=== PATIENT | male | born 1980 | race Caucasian/White ===

== ENCOUNTER 2016-11-12 07:10 | Day surgery (SDC) | payer BC ==
--- NOTE | 2016-10-08 15:52 | HP ---
HISTORY AND PHYSICAL EXAM WILL BE OVER 30 DAYS AT TIME OF ADMISSION HISTORY AND PHYSICAL: DATE OF SURGERY: 11/12/16 DATE OF OFFICE VISIT: 10/07/16 SURGEON: Janet Minor MD. (DICTATED BY DORI ROBISON) PROCEDURE: Left knee arthroscopy with partial lateral meniscectomy, possible chondroplasty, possible synovectomy. CHIEF COMPLAINT: Left knee pain. HISTORY OF PRESENT ILLNESS: Marcial is a 35-year-old gentleman with complaints of left knee pain. An MRI showed a lateral meniscus tear. He has failed a conservative management and has elected to proceed with a left knee arthroscopy with partial lateral meniscectomy, which is scheduled to be in the upcoming weeks pending cardiac clearance. PAST MEDICAL HISTORY: Left aortic stenosis. PAST SURGICAL HISTORY: Appendectomy, left carpal tunnel release. MEDIATIONS: Naproxen. ALLERGIES: None. FAMILY HISTORY: None. SOCIAL HISTORY: He is a 35-year-old gentleman. He is . He does not smoke or use drugs. He has an occasional alcohol. REVIEW OF SYSTEMS: A complete 14-point review of systems was reviewed with the patient and was negative and noncontributory. PHYSICAL EXAMINATION GENERAL: He is well developed and well nourished, he is in no acute distress. VITAL SIGNS: He stands 6 feet 2 inches tall, he is 215 pounds, his blood pressure 116/82. HEENT: Normocephalic, atraumatic. NECK: Supple. No palpable lymph nodes. PULMONARY: Lungs are clear to auscultation bilaterally. No wheezes, rhonchi, or rales. CARDIO: Regular rate and rhythm. ABDOMEN: Soft, nontender, and nondistended. MUSCULOSKELETAL: Left lower extremity; the skin is intact. There is some tenderness over the lateral joint line. There is full range of motion of the left knee with intact sensation, pin prick, and light touch. Lower extremity muscle group strengths are intact and 5/5. He is 2+ dorsalis pedis pulses. NEUROLOGIC: He is alert and oriented x3. Cranial nerves II through XII are intact. ASSESSMENT AND PLAN: Marcial is a 35-year-old gentleman with complaints of left knee pain. An MRI showed a lateral meniscus tear, he has elected to proceed with surgery, which is scheduled for the upcoming weeks with Dr. Minor pending cardiac clearance. He will follow with Dr. Minor in 10 to 14 days after the surgery. DORI ROBISON [id number]/CPS #: [id number] MTDD
--- NOTE | 2016-11-06 22:35 | HP ---
PREOPERATIVE HISTORY AND PHYSICAL: DATE OF ADMISSION: 11/12/16 PROVIDER: Dr. Janet Minor. CHIEF COMPLAINT: Left knee pain. HISTORY OF PRESENT ILLNESS: Marcial is a 35-year-old male, who has been followed by Dr. Minor f or ongoing left knee pain. He did undergo an MRI that showed a lateral meniscus tear and has failed conservative management. He has elected to proceed with a left knee arthroscopy with partial later al meniscectomy. PAST MEDICAL HISTORY: Left aortic stenosis. PAST SURGICAL HISTORY: Appendectomy and left carpal tunnel release. CURRENT MEDICATIONS: None. ALLERGIES: No known drug allergies. FAMILY HISTORY: Noncontributory. SOCIAL HISTORY: The patient lives with his . 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 He denies tobacco use. He denies illicit drug use. He drinks alcohol very occasionally. REVIEW OF SYSTEMS: Constitutional: Negative for recent hospitalizations, fevers, chills, night swe ats, or unexplained weight loss. Eyes: Negative for blurred or double vision. ENT: Negative for hearing changes, sore throat, or runny nose. Cardiovascular: Negative for chest or arm pain with ex ertion or history of heart attack. Positive for heart murmur due to his stenosis. Respiratory: Ne gative for chronic cough, shortness of breath with exertion, asthma, or COPD. Gastrointestinal: Neg ative for heartburn, nausea, vomiting, diarrhea, constipation, or GERD. Genitourinary: Negative fo r nighttime urination, frequency of urination, urinary tract infections, or kidney problems. Muscul oskeletal: Negative for chronic back pain. Negative for recent fracture. Skin: Negative for rashe s, lesions, lumps, or sores. Neurologic: Negative for seizure, stroke, epilepsy, depression, or an xiety. Endocrine: Negative for diabetes or thyroid problems. Hematology: Negative for easy bleed ing, bruising, or anemia. PHYSICAL EXAMINATION GENERAL: He is a well-developed, well-nourished male in no acute distress at rest. He is alert and oriented x3 with appropriate mood and affect. VITAL SIGNS: The patient is 6 feet tall, 234 pounds, blood pressure 140/89, pulse of 92, temperatur e 98.1. HEENT: Normocephalic, atraumatic. Hearing and vision are grossly intact. NECK: Trachea is midline. RESPIRATORY: Lungs clear to auscultation bilaterally. No wheezes, rales, or rhonchi. CARDIOVASCULAR: Regular rate and rhythm. No murmurs, rubs, or gallops. Normal S1, S2. ABDOMEN: Soft, nondistended, nontender. Normal bowel sounds. EXTREMITIES: Exam of the left lower extremity: Skin is intact without abrasions or open wounds. H helen has mild joint effusion. He is tender to palpation along the posterior medial and posterior later al joint lines. He has positive Apley's and positive Wilber's. He has 10 to 120 degrees of flexi on at the knee. Sensation to light touch is intact distally. He has stable varus and valgus stress test. He has a 2+ dorsalis pedis pulse. DIAGNOSTIC STUDIES: Imaging: MRI of the left knee was reviewed and shows a radial tear of the lat eral meniscus and some cartilage loss along the medial femoral condyle and patellofemoral joint. IMPRESSION: Left knee medial meniscus tear. PLAN: The patient is to undergo left knee arthroscopy with partial meniscectomy, possible chondropl asty, possible synovectomy by Dr. Minor on 11/12/16. The risks, benefits, and postoperative course were discussed with the patient at length and he would like to proceed. A prescription for Percocet was sent to his pharmacy for postoperative pain. All of his questions were answered to his full sa tisfaction. He is understanding to call if he develops problems or concerns. DORI BARGER [id number]/[facility] #: [id number]
[~2016-11-12 07:10] MED LIST: Buffered Lidocaine 0.9% SYRIN* 5 ML/SYR SYRINGE ONE; Bupivacaine 0.5% SDV PF* 30 ML VIAL ONE; Dexamethasone IV* 4 MG/ML 1 ML (4 MG) IV SLOW PU ONE; Dexamethasone IV* 4 MG/ML 1 ML (4 MG) ONE; EPINEPHrine AMP 1 MG/ML ONE; Famotidine IV* 10 MG/ML 2 ML (20 mg) IV ONE; Famotidine IV* 10 MG/ML 2 ML (20 mg) ONE; ceFAZolin 2 GM PREMIX(*) 2 GM/50 ML BAG IVPB ONE; methylPREDNISolone ACETATE 80* 80 MG/ML 1 ML VIAL ONE
[2016-11-12] MEDS ORDERED: Ondansetron INJ* 2 MG/ML VIAL IV PRN (07:33)
[2016-11-12] MEDS ORDERED: oxyCODONE/Acetamin 5/325 MG* TAB PO PRN (07:33)
[2016-11-12] MEDS ORDERED: fentaNYL* 50 MCG/ML 2 ML VIAL (100 MCG VIAL) IV PRN (07:33)
[2016-11-12] MEDS ORDERED: DiMENhydriNATE IV* 50 MG/ML VIAL IV PUSH PRN (07:33)
[2016-11-12] MEDS ORDERED: fentaNYL* 50 MCG/ML 5 ML VIAL (250 MCG VIAL) ONE (07:40)
[2016-11-12] MEDS ORDERED: Midazolam* 1 MG/ML 5 ML VIAL (5 MG) ONE (07:40)
[2016-11-12] MEDS ORDERED: Ondansetron INJ* 2 MG/ML VIAL ONE (07:41)
[2016-11-12] MEDS ORDERED: Lidocaine 2% PF * 5 ML VIAL ONE (07:41)
[2016-11-12] MEDS ORDERED: Propofol* 10 MG/ML 20 ML BTL IV PUSH ONE (07:41)
[2016-11-12] MEDS ORDERED: Ketorolac INJ* 30 MG/ML 1 ML VIAL ONE (07:41)
[2016-11-12] MEDS ORDERED: Glycopyrrolate IV* 0.2 MG/ML 1 ML VIAL ONE (08:12)
[2016-11-12] MEDS ORDERED: fentaNYL* 50 MCG/ML 2 ML VIAL (100 MCG VIAL) ONE (08:50)
[2016-11-12 09:32] VITALS: BP 144/96
[2016-11-12] MEDS ORDERED: oxyCODONE/Acetamin 5/325 MG* TAB ONE (09:33)
--- NOTE | 2016-11-13 04:35 | OP ---
DATE OF OPERATION: 11/12/16 [facility] DATE OF : 80 ATTENDING SURGEON: Janet Minor MD [employer]: DORI Burnham. Ms. Ochoa did help throughout the procedure with preparation of the leg, manipulation of instruments in the leg, and wound closure. ANESTHESIOLOGIST: Dr. Gates. ANESTHESIA: General. PRE-OP DIAGNOSIS: Left knee osteoarthritis and lateral meniscal tear. POST-OP DIAGNOSIS: Left knee severe degenerative osteoarthritis involving the medial and patellofemoral compartment, lateral meniscal tear. OPERATIVE PROCEDURES: Left knee arthroscopy with partial lateral meniscectomy, medial chondroplasty, patellofemoral chondroplasty. ESTIMATED BLOOD LOSS: Less than 50 cc. COMPLICATIONS: None. SPECIMEN: None. BRIEF HISTORY/INDICATION: Mr. Shoemaker is a 35-year-old gentleman with months of left knee pain. He had a twisting injury while bowling and since that time, has had clicking and catching in the knee. He failed conservative treatment and an MRI confirmed a lateral meniscal tear as well as his known arthritis. He elected to undergo left knee arthroscopy due to continued pain and decreased quality of life. Informed consent was obtained from the patient. He understood the risks of surgery included but were not limited to bleeding, infection, damage to nearby structures, continued pain, need for further surgery, stroke, heart attack, blood clot, and . He wished to proceed. INTRAOPERATIVE FINDINGS: Intraoperatively, the patient was noted to have an unfortunate amount of severe arthritis involving the medial and patellofemoral compartments. These were grade III and IV Outerbridge cartilage changes. There was exposed subchondral bone along the majority of the medial femoral condyle with cartilage flapping. There was exposed subchondral bone along the medial and lateral patellar facets as well as the trochlear groove. There was an anterolateral meniscal tear in the white-red zone, which was radial. DESCRIPTION OF PROCEDURE: Mr. Shoemaker was identified in the preanesthesia unit. His left lower extremity was marked as the correct operative side. Informed consent was signed and placed in the chart. The patient was taken to the operating room and placed under general anesthesia. His left lower extremity was prepped and draped in the usual sterile fashion. Preop time-out was made to correctly identify the patient's side and site. Appropriate perioperative antibiotics were given within 1 hour of incision. A 0.5 cm anterolateral portal incision was made with the 10 blade and carried down through the capsule. Trocar was introduced. As soon as the light and water sources were turned on, there was immediate visualization of the supra- patellar pouch. A tour of the knee joint was performed. Patellofemoral compartment showed some cartilage flapping with exposed subchondral bone along the medial and lateral patellar facets as well as in the trochlear groove. Medial gutter showed no loose body. There was some synovitis. Medial compartment showed exposed subchondral bone with cartilage flapping along the majority of the medial femoral condylar weightbearing surface. There was no obvious medial meniscal tear. ACL appeared to be intact. The knee was placed in the [id number] position. There was an anterolateral radial tear of the lateral meniscus. No significant cartilage changes in this compartment. Lateral gutter showed no loose body or plica. Under direct visualization, a medial portal incision was made with a 15 blade. Probe was introduced and a second tour of the knee joint was performed. There were no additional findings. Shaver and radiofrequency ablation wand were used to carefully remove any anterior synovitis or inflamed tissue. Next, the radiofrequency ablation wand used to perform medial and patellofemoral chondroplasty. Cartilage flaps were carefully and conservatively smoothed in order to prevent continued tearing. Unfortunately, it was noted that these were grade III and IV Outerbridge cartilage changes in both the medial and patellofemoral compartments. Next, the knee was placed in a figure- of-four position. Straight biter and shaver were used to perform partial lateral meniscectomy in the white-white and white- red zone until a smooth border of the anterolateral meniscus was obtained. There were multiple small cartilage fragments in the joint fluid. Shaver was placed in the suprapatellar pouch and the knee was copiously irrigated with several liters of sterile saline with epi. All instruments were carefully removed. The incisions were closed using interrupted 3-0 nylon suture. Intraarticular injection of 80 mg of Depo-Medrol and 6 cc of 0.25% Marcaine was placed in the knee joint. The patient's incisions were covered in Xeroform, 4x4' s, and Webril. Zak wrap and cold pack were placed over this. The patient's anesthesia was reversed without difficulty. He was taken to the PACU in stable condition. Intended weightbearing will be weightbearing as tolerated. Intended DVT prophylaxis will be ECASA. [id number]/[facility] #: [id number] [facility]
== END 2016-11-12 09:58 | disposition home or self-care (01) ==
LOC: OR 07:10
PROVIDERS: ATTEND Orthopaedic Surgery Adult Reconstructive Orthopaedic Surgery
DX: S83.282A Other tear of lateral meniscus, current injury, left knee, initial encounter (principal); M17.12 Unilateral primary osteoarthritis, left knee; M65.862 Other synovitis and tenosynovitis, left lower leg; X50.9XXA Other and unspecified overexertion or strenuous movements or postures, initial encounter; Y92.9 Unspecified place or not applicable; I35.0 Nonrheumatic aortic (valve) stenosis
CPT/HCPCS: 88304; A9270-GY; J0171; J0690; J1040; J1100; J1885; J2250; J2405; J2704; J3010

== ENCOUNTER 2016-11-20 16:27 | Emergency (ER) | payer BC ==
--- NOTE | 2016-11-20 18:19 | RAD ---
HISTORY: Left lower extremity swelling and pain, status post arthroscopic surgery COMPARISONS: None relevant TECHNIQUE: Multiple transverse and longitudinal ultrasound images were obtained of the left lower extremity from the level of the common femoral vein inferiorly through to the infrapopliteal veins using grayscale, color Doppler, and spectral Doppler imaging with and without compression and with augmentation. Comparison images were obtained of the contralateral common femoral vein. FINDINGS: VEINS: The venous system of the left lower extremity is compressible throughout its course, with normal flow on color Doppler imaging and normal response to augmentation on spectral Doppler imaging. SOFT TISSUES: Unremarkable. OTHER FINDINGS: There is a complicated suprapatellar joint effusion measuring 7.8 x 2.2 x 8 centimeters in size. There is a complicated fluid collection in the popliteal fossa measuring 4.4 x 2.6 x 1.8 cm. IMPRESSION: 1. NO LEFT LOWER EXTREMITY DEEP VEIN THROMBOSIS 2. COMPLICATED SUPRAPATELLAR JOINT EFFUSION AND LEFT POPLITEAL FOSSA CYST
[2016-11-20 18:40] VITALS: BP 138/81
--- NOTE | 2016-11-20 18:51 | ED ---
Lower Extremity - HPI Summary HPI Summary: Patient is 8 days s/p partial lateral meniscectomy after a lateral meniscal tear peformed by Dr. Minor. He notes to worsening pain and joint effusion over the area x 1 week. He states he called Dr. Minor's office on Wednesday but never received a call back. Today, he called again with a complaint of worsening tenderness to the popliteal area and was advised to come to ED for evaluation. He has been weight bearing with pain, moderate amount of effusion and clean incision wounds over the anterior knee without erythema, warmth or drainage. Denies SOB, fever, sweats or chills. He has limited ROM d/t pain and swelling and is requesting pain management. - History of Current Complaint Chief Complaint: EDExtremityLower Stated Complaint: LT KNEE PAIN/SURGERY LAST Time Seen by Provider: 11/20/16 17:56 Hx Obtained From: Patient Onset of Pain: Days Onset/Duration: Days Severity Initially: Moderate Severity Currently: Moderate Pain Intensity: 8 Pain Scale Used: 0-10 Numeric Timing: Constant Location: Is Discrete @ - left posterior and lateral knee Character Of Pain: Aching, Stiffness Associated Signs And Symptoms: Positive: Swelling Aggravating Factor(s): Standing, Ambulation Alleviating Factor(s): Rest Able to Bear Weight: No - Risk Factors Gout Risk Factors: Male DVT Risk Factors: Recent Surgery, Recent Trauma Septic Arthritis Risk Factor: Negative - Allergies/Home Medications Allergies/Adverse Reactions: Allergies Allergy/AdvReac Type Severity Reaction Status Date / Time No Known Allergies Allergy Verified 11/12/16 07:25 PMH/Surg Hx/FS Hx/Imm Hx Previously Healthy: Yes Endocrine/Hematology History: Denies: Hx Diabetes, Hx Thyroid Disease Cardiovascular History: Reports: Other Cardiovascular Problems/Disorders - LEFT AORTIC VALVE STENOSIS SINCE Denies: Hx Hypertension, Hx Pacemaker/ICD Respiratory History: Denies: Hx Asthma, Hx Chronic Obstructive Pulmonary Disease (COPD) GI History: Denies: Hx Ulcer History: Denies: Hx Dialysis, Hx Renal Disease Musculoskeletal History: Reports: Hx Arthritis - GENERALIZED, Hx Back Problems, Other Musculoskeletal History - had bone fusion and hx plantar fascitis left foot, left knee bursitis Sensory History: Denies: Hx Contacts or Glasses, Hx Hearing Aid Opthamlomology History: Denies: Hx Contacts or Glasses Neurological History: Denies: Other Neuro Impairments/Disorders Psychiatric History: Denies: Hx Panic Disorder - Cancer History Hx Chemotherapy: No - Surgical History Surgery Procedure, Year, and Place: [id number] Left carpal tunnel release 2009 Hx Anesthesia Reactions: No Infectious Disease History: No Infectious Disease History: Denies: Hx Clostridium Difficile, Hx Hepatitis, Hx Human Immunodeficiency Virus (HIV), Hx of Known/Suspected MRSA, Hx Shingles, Hx Tuberculosis, Hx Known/ Suspected VRE, Hx Known/Suspected VRSA, History Other Infectious Disease, Traveled Outside the [place] in Last 30 Days - Social History Occupation: Employed Full-time Lives: With Family Alcohol Use: None Hx Substance Use: No Substance Use Type: Reports: None Substance Use Comment - Amount & Last Used: oxycodone Hx Tobacco Use: No Smoking Status (MU): Never Smoked Tobacco Do You Chew or Dip Tobacco: No Have You Smoked in the Last Year: No Review of Systems Constitutional: Negative Eyes: Negative Cardiovascular: Negative Genitourinary: Negative Positive: Arthralgia - left knee joint effusion with pain Skin: Negative Neurological: Negative Psychological: Normal All Other Systems Reviewed And Are Negative: Yes Physical Exam Triage Information Reviewed: Yes Vital Signs On Initial Exam: Initial Vitals Temp Pulse Resp BP Pulse Ox 97.9 F 105 20 158/95 98 11/20/16 16:32 11/20/16 16:32 11/20/16 16:32 11/20/16 16:32 11/20/16 16:32 Vital Signs Reviewed: Yes Appearance: Positive: Well-Appearing, Well-Nourished Skin: Positive: Warm, Skin Color Reflects Adequate Perfusion Eyes: Positive: Normal, EOMI, DENISHA Neck: Positive: No Lymphadenopathy Respiratory/Lung Sounds: Positive: Clear to Auscultation, Breath Sounds Present Cardiovascular: Positive: RRR Musculoskeletal: Positive: Pain @ - left lateral and posterior knee pain and swelling, Paola Sign Left Neurological: Positive: Sensory/Motor Intact, Speech Normal Psychiatric: Positive: Normal AVPU Assessment: Alert Diagnostics - Vital Signs Vital Signs Temp Pulse Resp BP Pulse Ox 11/20/16 18:39 99.8 F 93 18 138/81 99 11/20/16 16:32 97.9 F 105 20 158/95 98 - Laboratory Lab Statement: Any lab studies that have been ordered have been reviewed, and results considered in the medical decision making process. Lower Extremity Course/Dx - Course Course Of Treatment: He has tenderness over the posterior lateral joint lines. S/p meniscal surgery by Dr. Minor. Incision and suture lines are CDI without signs of infection. Per patient, swelling is not better or worse than 1 day s/ p surgery. He notes to worsening pain not well controlled with ibuprofen (has not been taking consistently). Called Dr. Minor's office today with c/o pain in the posterior knee in the popliteal fossa. They advised he come here for a r /o DVT. IMPRESSION: 1. NO LEFT LOWER EXTREMITY DEEP VEIN THROMBOSIS. 2. COMPLICATED SUPRAPATELLAR JOINT EFFUSION AND LEFT POPLITEAL FOSSA CYST. Patient advised to follow up with Dr. Minor's office on Wednesday. Effusion is moderate and unchanging. Discussed treatment plans including joint aspiration. However, risks for joint aspiration after surgery is not advised, and is to f/ u next week. Pain management given. Patient made aware of plan and is OK with discharge. Patient will follow up with PCP and return if symptoms become worse. Return precautions given, medications and side effects reviewed. - Diagnoses Differential Diagnosis/HQI/PQRI: Positive: Fracture (Closed), Fracture (Open), Sprain, Strain, Tendonitis Provider Diagnoses: Joint effusion of knee Discharge - Discharge Plan Condition: Stable Disposition: HOME Prescriptions: HYDROcodone/ACETAMIN 5-325 MG* [[place] 5-325 TAB*] 1 tab PO Q4H PRN #18 tab MDD 6 PRN Reason: Pain Patient Education Materials: Swollen Knee Joint (ED) Referrals: Gonsalo Gil MD [Primary Care Provider] - Additional Instructions: Ibuprofen 600mg three times daily with meals for inflammation. Follow up with orthopedic physician on Wednesday. If numbness, tingling, decreased sensation, increased pain, temperature changes or pallor noted in toes, come back to ER immediately. Protect the area. For your comfort level, do not bear weight, pull or push until you can injury is somewhat healed. Rest the involved area, but not too long. You may need to be off your injury for some time to allow for healing, however excessive immobilization of joints can lead to stiffness and delay healing time. Early mobilization is encouraged if it is pain-free. Ice. Not directly on the skin. Cover with a towel. Apply ice no more than 30 minutes at a time Compression: You may use and keep an shmuel wrap bandage over the injury to decrease swelling. Again, this should be limited and be taken off periodically to encourage early range of motion and mobilization. Elevate: Try to elevate the injured area above the heart whenever possible.
== END 2016-11-20 18:53 | disposition home or self-care (01) ==
LOC: ED 16:27
DX: M25.462 Effusion, left knee (principal); M25.562 Pain in left knee; M71.22 Synovial cyst of popliteal space [Baker], left knee; Z98.890 Other specified postprocedural states; I35.0 Nonrheumatic aortic (valve) stenosis
CPT/HCPCS: 99282

== ENCOUNTER 2018-01-15 21:42 | Emergency (ER) | payer BC ==
[2018-01-15 22:13] LABS: ABS Basophils 0.1 10^3/ul (0-0.2); ABS Eosinophils 0.1 10^3/ul (0-0.6); ABS Lymphocytes 2.8 10^3/ul (1.0-4.8); ABS Monocytes 0.6 10^3/ul (0-0.8); ABS Neutrophils 3.3 10^3/ul (1.5-7.7); ABS Nucleated RBC 0 10^3/ul; Hematocrit 42 % (42-52); Lymphocyte % 40.6 % (25-47); Mean Corpuscular HGB Conc 36 g/dl (31-36); Mean Corpuscular Hemoglobin 31 pg (27-31); Mean Corpuscular Volume 88 fL (80-94); Mean Platelet Volume 8.4 um3 (7.4-10.4); Nucleated Red Blood Cells % 0.2; Platelet Count 247 10^3/ul (150-450); Red Blood Count 4.79 10^6/ul (4.00-5.40); Red Cell Distribution Width 13 % (10.5-15); White Blood Count 6.9 10^3/ul (3.5-10.8)
[2018-01-15] MEDS ORDERED: Morphine VIAL* 10 MG/ML 1 ML VIAL IV ONE (22:16)
[2018-01-15] MEDS ORDERED: Ondansetron INJ* 2 MG/ML VIAL IV PRN (22:16)
[2018-01-15] MEDS ORDERED: NS 0.9% 1000 ML* 1,000 ML IV ONE (22:16)
[2018-01-15 22:30] LABS: EGFR Non-African American 84.1 (>60)
[2018-01-15] MEDS ORDERED: Ondansetron INJ* 2 MG/ML VIAL ONE (22:34)
--- NOTE | 2018-01-15 22:53 | ED ---
Abdominal Pain/Male - HPI Summary HPI Summary: Patient complains of right lower quadrant abdominal pain starting yesterday. Pain described as achy, sharp, constant with spikes, worse with movement, progressive since yesterday. Also complains of bloating 2 days, minimal bowel movement 2 days. States history of untreated hernia for 2-3 years, but no protrusion. Eating and drinking normally. Denies fever, cough, sore throat, CP , SOB, N/V/D, change in urine, testicular or genital pain. Medical history is none. Surgical history is appendectomy. - History of Current Complaint Chief Complaint: EDAbdPain Stated Complaint: ABD PAIN Time Seen by Provider: 01/15/18 21:44 Hx Obtained From: Patient Onset/Duration: Sudden Onset Timing: Constant Severity Currently: Moderate Pain Intensity: 7 Pain Scale Used: 0-10 Numeric Location: Discrete At: RLQ Radiates: No Character: Sharp Aggravating Factor(s): Movement Alleviating Factor(s): Nothing Associated Signs And Symptoms: Positive: Negative - Allergies/Home Medications Allergies/Adverse Reactions: Allergies Allergy/AdvReac Type Severity Reaction Status Date / Time No Known Allergies Allergy Verified 01/15/18 21:47 PMH/Surg Hx/FS Hx/Imm Hx Endocrine/Hematology History: Denies: Hx Anticoagulant Therapy, Hx Diabetes, Hx Thyroid Disease Cardiovascular History: Reports: Other Cardiovascular Problems/Disorders - LEFT AORTIC VALVE STENOSIS SINCE Denies: Hx Hypertension, Hx Pacemaker/ICD Respiratory History: Denies: Hx Asthma, Hx Chronic Obstructive Pulmonary Disease (COPD) GI History: Denies: Hx Ulcer History: Denies: Hx Dialysis, Hx Renal Disease Musculoskeletal History: Reports: Hx Arthritis - GENERALIZED, Hx Back Problems, Other Musculoskeletal History - had bone fusion and hx plantar fascitis left foot, left knee bursitis Sensory History: Denies: Hx Contacts or Glasses, Hx Hearing Aid Opthamlomology History: Denies: Hx Contacts or Glasses Neurological History: Denies: Other Neuro Impairments/Disorders Psychiatric History: Denies: Hx Panic Disorder - Cancer History Hx Chemotherapy: No - Surgical History Surgery Procedure, Year, and Place: [id number] Left carpal tunnel release 2009 Hx Anesthesia Reactions: No Infectious Disease History: No Infectious Disease History: Denies: Hx Clostridium Difficile, Hx Hepatitis, Hx Human Immunodeficiency Virus (HIV), Hx of Known/Suspected MRSA, Hx Shingles, Hx Tuberculosis, Hx Known/ Suspected VRE, Hx Known/Suspected VRSA, History Other Infectious Disease, Traveled Outside the [place] in Last 30 Days - Social History Alcohol Use: None Hx Substance Use: No Substance Use Type: Reports: None Substance Use Comment - Amount & Last Used: oxycodone Hx Tobacco Use: No Smoking Status (MU): Never Smoked Tobacco Have You Smoked in the Last Year: No Review of Systems Constitutional: Negative Eyes: Negative ENT: Negative Cardiovascular: Negative Respiratory: Negative Positive: Abdominal Pain Genitourinary: Negative Musculoskeletal: Negative Skin: Negative Neurological: Negative Psychological: Normal All Other Systems Reviewed And Are Negative: Yes Physical Exam - Summary Physical Exam Summary: No abdominal masses or protrusions noted. No evidence of hernia or incarcerated hernia. Tenderness to palpation of right lower quadrant. Triage Information Reviewed: Yes Vital Signs On Initial Exam: Initial Vitals Temp Pulse Resp BP Pulse Ox 99.1 F 66 16 162/90 98 01/15/18 21:44 01/15/18 21:44 01/15/18 21:44 01/15/18 21:44 01/15/18 21:44 Vital Signs Reviewed: Yes Appearance: Positive: Well-Appearing Skin: Positive: Warm Head/Face: Positive: Normal Head/Face Inspection Eyes: Positive: Normal Neck: Positive: Supple Respiratory/Lung Sounds: Positive: Clear to Auscultation Cardiovascular: Positive: Normal Abdomen Description: Positive: [place] Tenderness, Other: Musculoskeletal: Positive: Normal Neurological: Positive: Normal Psychiatric: Positive: Normal AVPU Assessment: Alert - Inna Coma Scale Best Eye Response: 4 - Spontaneous Best Motor Response: 6 - Obeys Commands Best Verbal Response: 5 - Oriented Coma Scale Total: 15 Diagnostics - Vital Signs Vital Signs Temp Pulse Resp BP Pulse Ox 01/15/18 22:41 18 01/15/18 21:44 99.1 F 66 16 162/90 98 - Laboratory Lab Results: Lab Results 01/15/18 01/15/18 Range/Units 22:01 22:01 WBC 6.9 (3.5-10.8) 10^3/ul RBC 4.79 (4.00-5.40) 10^6/ul Hgb 15.0 (14.0-18.0) g/dl Hct 42 (42-52) % MCV 88 (80-94) fL MCH 31 (27-31) pg MCHC 36 (31-36) g/dl RDW 13 (10.5-15) % Plt Count 247 (150-450) 10^3/ul MPV 8.4 (7.4-10.4) um3 Neut % (Auto) 48.2 (38-83) % Lymph % (Auto) 40.6 (25-47) % Todd % (Auto) 7.9 H (0-7) % Eos % (Auto) 2.0 (0-6) % Baso % (Auto) 1.3 (0-2) % Absolute Neuts (auto) 3.3 (1.5-7.7) 10^3/ul Absolute Lymphs (auto) 2.8 (1.0-4.8) 10^3/ul Absolute Monos (auto) 0.6 (0-0.8) 10^3/ul Absolute Eos (auto) 0.1 (0-0.6) 10^3/ul Absolute Basos (auto) 0.1 (0-0.2) 10^3/ul Absolute Nucleated RBC 0 10^3/ul Nucleated RBC % 0.2 Sodium 141 (135-145) mmol/L Potassium 3.8 (3.5-5.0) mmol/L Chloride 106 (101-111) mmol/L Carbon Dioxide 29 (22-32) mmol/L Anion Gap 6 (2-11) mmol/L BUN 9 (6-24) mg/dL Creatinine 1.00 (0.67-1.17) mg/dL Est GFR ( Amer) 101.7 (>60) Est GFR (Non-Af Amer) 84.1 (>60) BUN/Creatinine Ratio 9.0 (8-20) Glucose 124 H (70-100) mg/dL Calcium 9.2 (8.6-10.3) mg/dL Total Bilirubin 0.40 (0.2-1.0) mg/dL AST 21 (13-39) U/L ALT 33 (7-52) U/L Alkaline Phosphatase 84 (34-104) U/L C-Reactive Protein 2.47 (<8.01) mg/L Total Protein 6.9 (6.4-8.9) g/dL Albumin 4.0 (3.2-5.2) g/dL Globulin 2.9 (2-4) g/dL Albumin/Globulin Ratio 1.4 (1-3) Lipase 36 (11.0-82.0) U/L Result Diagrams: 01/15/18 22:01 01/15/18 22:01 Lab Statement: Any lab studies that have been ordered have been reviewed, and results considered in the medical decision making process. - CT CT ab/pel CT Interpretation: No Acute Changes CT Interpretation Completed By: Radiologist Abdominal Pain Fem Course/Dx - Course Course Of Treatment: Patient complains of right lower quadrant abdominal pain starting yesterday. Pain described as achy, sharp, constant with spikes, worse with movement, progressive since yesterday. Also complains of bloating 2 days , minimal bowel movement 2 days. States history of untreated hernia for 2-3 years, but no protrusion. Eating and drinking normally. Denies fever, cough, sore throat, CP, SOB, N/V/D, change in urine, testicular or genital pain. Medical history is none. Surgical history is appendectomy. Physical exam:No abdominal masses or protrusions noted. No evidence of hernia or incarcerated hernia. Tenderness to palpation of right lower quadrant. Vital signs normal. Labs unremarkable. CT abdomen and pelvis unremarkable other than bilateral fat filled inguinal hernias. Rx for pain control and advise follow-up with GI - Diagnoses Provider Diagnoses: Abdominal pain Discharge - Sign-Out/Discharge Documenting (check all that apply): Patient Departure - Discharge Plan Condition: Stable Disposition: HOME Patient Education Materials: Acute Abdominal Pain (ED) Referrals: Gonsalo Gil MD [Primary Care Provider] - Amber Peterson DO [Doctor of Osteopathy] - Additional Instructions: Follow-up with GI specialist Dr. Peterson. Return to the ED for any new or worsening symptoms - Billing Disposition and Condition Condition: STABLE Disposition: Home
[2018-01-15] MEDS ORDERED: Iohexol 300* (CONTRAST) 10 ML SDV IV ONE (23:01)
[2018-01-16] MEDS ORDERED: Morphine VIAL* 10 MG/ML 1 ML VIAL IV ONE (01:07)
[2018-01-16 01:22] VITALS: BP 139/83
--- NOTE | 2018-01-16 07:43 | RAD ---
INDICATION: Right lower quadrant abdominal pain. COMPARISON: There are no prior studies available for comparison. TECHNIQUE: A CT scan of the abdomen and pelvis was performed with intravenous and without oral contrast following intravenous injection of 139 ml of Omnipaque 300 nonionic contrast. Contiguous axial sections were obtained from the lung bases through the symphysis pubis. Images were reconstructed in the coronal and sagittal planes. FINDINGS: There is mild dependent bilateral lower lobe subsegmental atelectasis. No pleural effusion is present. The liver is normal in size and decreased in attenuation consistent with fatty infiltration. There appears to be focal sparing in the posterior aspect of the left hepatic lobe. No calcified gallstones are seen. The pancreas appears to be within normal limits. The spleen is upper limits of normal in size without significant focal abnormality. The kidneys and adrenal glands are normal in size. No hydronephrosis is seen. No significant focal renal abnormality is seen. The aorta is normal in caliber and demonstrates homogeneous contrast opacification. No significant enlarged retroperitoneal lymph nodes are seen. The stomach is mildly distended with food debris. The small bowel and colon appear nondistended. There is a surgical staple line along the medial aspect of the cecum consistent with a prior appendectomy. There is mild descending and sigmoid diverticulosis without evidence for diverticulitis. There are bilateral inguinal hernias containing fat. There is also a small periumbilical hernia containing fat. No free intraperitoneal air or fluid is seen. No significant focal osseous abnormality is seen. IMPRESSION: 1. NO EVIDENCE FOR ACUTE FINDING. 2. FATTY INFILTRATION OF THE LIVER. 3. SMALL BILATERAL INGUINAL AND PERIUMBILICAL HERNIAS CONTAINING FAT. 4. STATUS POST APPENDECTOMY.
== END 2018-01-16 01:38 | disposition home or self-care (01) ==
LOC: ED 21:42
DX: R10.31 Right lower quadrant pain (principal)
CPT/HCPCS: 36415; 74177; 80053; 83690; 85025; 86140; 96374; 96375; 99283; J2270; J2405; Q9967

== ENCOUNTER 2018-07-13 09:05 | Emergency (ER) | payer BC ==
[2018-07-13 09:14] VITALS: BP 135/93
[2018-07-13 10:43] LABS: Influenza A Molecular POSITIVE (Negative)
--- NOTE | 2018-07-13 10:59 | UC ---
Throat Pain/Nasal Luis HPI - HPI Summary HPI Summary: Patient presents to urgent care patient presents to urgent care with 36 hours of progressive head congestion fevers to 103, and body aches. Patient denies nausea or vomiting. Patient states his child was sick become better. Patient has been taking DayQuil and NyQuil with short-term relief. Last dose approximately at 7:30 this morning. Patient with congestion and runny nose. Patient without any rashes. No cough. No shortness of breath. No nausea or vomiting. Decreased appetite. Patient's agreement with the fluids. Patient to get the flu vaccine this year. Patient's medications reviewed this visit. - History of Current Complaint Chief Complaint: UCGeneralIllness Stated Complaint: FEVER CHILLS Time Seen by Provider: 07/13/18 10:34 Hx Obtained From: Patient Onset/Duration: Gradual Onset Severity: Mild Pain Intensity: 3 - Allergies/Home Medications Allergies/Adverse Reactions: Allergies Allergy/AdvReac Type Severity Reaction Status Date / Time No Known Allergies Allergy Verified 07/13/18 09:14 PMH/Surg Hx/FS Hx/Imm Hx Previously Healthy: Yes Other History Of: Negative For: Anticoagulant Therapy - Surgical History Surgical History: Yes Surgery Procedure, Year, and Place: [id number] Left carpal tunnel release 2009 - Social History Alcohol Use: None Substance Use Type: None Substance Use Comment - Amount & Last Used: oxycodone Smoking Status (MU): Never Smoked Tobacco Have You Smoked in the Last Year: No Review of Systems All Other Systems Reviewed And Are Negative: Yes Constitutional: Positive: Fever, Fatigue ENT: Positive: Nasal Discharge, Sinus Congestion Respiratory: Positive: Cough Physical Exam - Summary Physical Exam Summary: A+Ox3, no distress. congested Eyes: Conjunctiva Clear, DENISHA. EOM intact and full ENT: Hearing grossly normal TM x 2 clear, turbinates inflammed and boggy, + PND , mmoist, uvula midline, no exudate, no erythema Neck: Positive: Supple Respiratory: Positive: No respiratory distress, No accessory muscle use + CTA throughout no w/r, mild cough Cardiovascular: RRR nl s1, s2 no m/r CBT <2 sec abd soft + BS nt/nd no guarding, no distension Musculoskeletal Exam: SALAZAR x 4 without difficulty Strength Intact, ROM Intact Neurological: Positive: Alert, + sensation throughout Psychological: Positive: Normal Response To Family Skin: Positive: no rash, no ecchymosis Triage Information Reviewed: Yes Vital Signs: Initial Vital Signs Temp 98 F 07/13/18 09:12 Pulse 94 07/13/18 09:12 Resp 18 07/13/18 09:12 BP 135/93 07/13/18 09:12 Pulse Ox 100 07/13/18 09:12 Throat Pain/Nasal Course/Dx - Course Course Of Treatment: Pt presents with 36 hours of body aches, fevers, congestion , cough. Pt taking Dayquil/Nyquil with short term relief. pt VSS. Pt with nasal congestion and PND. Influenza A positive. recommend hydrate. motrin/ apap. secretion precaution. Tamiflu -Pt's 39 weeks - recommend contact her OB or PCP for ? prophylaxis. work note. return precautions - Differential Dx/Diagnosis Provider Diagnosis: Influenza A Discharge - Sign-Out/Discharge Documenting (check all that apply): Patient Departure All imaging exams completed and their final reports reviewed: No Studies - Discharge Plan Condition: Stable Disposition: HOME Prescriptions: Fluticasone NASAL SPRAY 50MCG* [Flonase NASAL SPRAY 50MCG*] 2 spray BOTH NARES DAILY #1 btl Oseltamivir CAP* [Tamiflu CAP*] 75 mg PO BID #10 cap Patient Education Materials: Influenza (ED) Forms: *Work Release Referrals: Gonsalo Gil MD [Primary Care Provider] - Additional Instructions: - Stay well hydrated. Drink plenty of non-alcoholic, non-caffinated beverages. - Alternate ibuprofen (Advil, Motrin) 600mg and Tylenol every 3 hours for pain or fever. Take with food. Do NOT take for more than 4-5 days. - These infections are spread by secretions - do NOT share eating or drinking utensils - clean items you share with other people such as cell phones, computer mouse, TV remote, computer tablets,etc. Once you start to feel better, change your toothbrush and your pillowcase. - get plenty of restful sleep - humidify the air in the room where you sleep - boil water, run a hot steam shower, vaporizer, cups of water by heat register - okay to take over the counter decongestant and cough medication - use nasal spray as instructed - contact your doctor or return with questions or concerns - Billing Disposition and Condition Condition: STABLE Disposition: Home
[2018-07-13] MEDS ORDERED: Ibuprofen TAB* 600 MG PO ONE (11:09)
== END 2018-07-13 11:36 | disposition home or self-care (01) ==
LOC: UCEAST 09:05
DX: J10.1 Influenza due to other identified influenza virus with other respiratory manifestations (principal)
CPT/HCPCS: 99212; A9270-GY; G0463